=== PATIENT | male | born 1980 | race Hispanic/Latino ===

== ENCOUNTER 2016-07-13 20:00 | Emergency (ER) | payer OTHER ==
[2016-07-13 20:56] VITALS: RESP 18; O2SAT 99
[2016-07-13] MEDS ORDERED: Absorbable Gelatin Sponge Size 12-7 ONE (21:36)
[2016-07-13] MEDS ORDERED: Bacitracin 500 Units/gm Oint Foilpak UD ONE (21:36)
--- NOTE | 2016-07-13 21:56 | C.PDOC ---
History Of Present Illness A 35 year old male presents to the ER c/o an avulsion to the lateral aspect of the left middle fingertip that occurred prior to arrival. Patient notes that he was cooking when he cut the tip of his middle finger with a knife. Patient denies any other complaints. Time Seen by Provider: 07/13/16 20:58 Chief Complaint (Nursing): Abnormal Skin Integrity History Per: Patient History/Exam Limitations: no limitations Onset/Duration Of Symptoms: Hrs Current Symptoms Are (Timing): Still Present Location Of Injury: Left: Hand (Middle digit of the left hand) Quality Of Symptoms: Painful Severity: Mild Additional History Per: Patient Past Medical History Reviewed: Historical Data, Nursing Documentation, Vital Signs Vital Signs: Last Vital Signs Temp 98.4 F 07/13/16 22:25 Pulse 75 07/13/16 22:25 Resp 18 07/13/16 22:25 BP 135/81 07/13/16 22:25 Pulse Ox 99 07/13/16 22:25 Family History: States: Unknown Family Hx - Social History Hx Alcohol Use: No Hx Substance Use: No - Immunization History Hx Tetanus Toxoid Vaccination: No Hx Influenza Vaccination: No Hx Pneumococcal Vaccination: No Review Of Systems Constitutional: Negative for: Fever, Chills Musculoskeletal: Negative for: Hand Pain (Left middle digit) Skin: Positive for: Other (laceration) Neurological: Negative for: Weakness, Numbness Physical Exam - Physical Exam Appears: Non-toxic, In Acute Distress (Mild, due to pain) Skin: Warm, Dry Head: Atraumatic, Normacephalic Eye(s): bilateral: Normal Inspection Extremity: Capillary Refill (<2 sec), Other (Avulsion to the lateral aspect of the left middle fingertip) Pulses: Left Radial: Normal, Right Radial: Normal Neurological/Psych: Oriented x3, Normal Speech, Normal Cognition ED Course And Treatment O2 Sat by Pulse Oximetry: 99 (RA) Pulse Ox Interpretation: Normal Medical Decision Making Medical Decision Making: Impression: A 35 y/o with an avulsion to the lateral aspect of the left middle finger Plans: -Reassess and disposition Patient wound was cleaned with betadine solution, bacitracin and gelfoam dressing was applied to the wound and finger dressing applied by me . Pt was observed for bleeding, dressing remained clean and pt placed in sling for elevation. On reassessment, patient is resting comfortably, and is in no acute distress. Patient was instructed to follow up with PMD in 1-2 days for further evaluation. Disposition Counseled Patient/Family Regarding: Diagnosis, Need For Followup, Rx Given - Disposition Disposition: HOME/ ROUTINE Disposition Time: 22:09 Condition: STABLE Additional Instructions: Keep wound clean keep dressing in place tonight May remove tomorrow and apply bacitracin dressing Return to ER if worse Instructions: Skin Avulsion (ED) - Clinical Impression Clinical Impression: Fingertip avulsion - Scribe Statement The provider has reviewed the documentation as recorded by the Scribfatoumata guzman All medical record entries made by the Evanibfatoumata were at my direction and personally dictated by me. I have reviewed the chart and agree that the record accurately reflects my personal performance of the history, physical exam, medical decision making, and the department course for this patient. I have also personally directed, reviewed, and agree with the discharge instructions and disposition.
[2016-07-13] MEDS ORDERED: Naproxen 550 mg Tab PO STA (22:23)
[2016-07-13] MEDS ORDERED: Naproxen 550 mg Tab PO ONE (22:23)
[2016-07-13 22:26] VITALS: BP 135/81; PULSE 75; TEMP 98.4
== END 2016-07-13 22:26 | disposition home or self-care (01) ==
LOC: C.ER 20:00
DX: S61.303A Unspecified open wound of left middle finger with damage to nail, initial encounter (principal); W26.0XXA Contact with knife, initial encounter